=== PATIENT | male | born 1965 | race Caucasian/White ===

== ENCOUNTER 2017-09-10 19:31 | Emergency (ER) | payer OTHER ==
[~2017-09-10] VITALS: Ht 180.3 cm; Wt 102.1 kg
[2017-09-10 19:40] VITALS: BP_SYST 151
--- NOTE | 2017-09-10 20:08 | NUR ---
[facility] up. Report given to Terell ALMARAZ.
--- NOTE | 2017-09-10 20:10 | NUR ---
ER MD Paiz at bedside for medical evaluation.
[2017-09-10] MEDS ORDERED: KETOROLAC TROMETHAMINE 30 MG VIAL IVP ONE (20:15)
[2017-09-10] MEDS ORDERED: NACL 0.9% 1,000 ML IV ONE (20:15)
--- NOTE | 2017-09-10 20:15 | NUR ---
Patient AOx4, ambulatory, presents to ER with complaint of left ear pain x2 days. Patient states no other symptoms or complaints at this time.
--- NOTE | 2017-09-10 20:25 | NUR ---
# 20 gauge angiocath placed to LAC. Use of asceptic technique. Opsite placed over site. Blood return noted. Blood for lab drawn from site. Flushed with 10 cc of normal saline. No evidence of infiltration noted. Patient tolerated well.
[2017-09-10] MEDS ORDERED: DEXAMETHASONE SOD PHOSPHATE 10 MG/ML VIAL IVP ONE (20:30)
[2017-09-10 20:50] LABS: BASOPHILS % (AUTO) 0.5 % (0.0-2.0); EOSINOPHILS # (AUTO) 0.3 K/uL (0.0-0.4); HEMATOCRIT 48.3 % (36-54); HEMOGLOBIN 15.8 g/dL (14.0-18.0); LYMPHOCYTES # (AUTO) 1.1 K/uL (1.0-5.5); MEAN CORPUSCULAR HEMOGLOBIN 30 pg (27-31); MEAN CORPUSCULAR HGB CONC 33 % (32-36); MEAN CORPUSCULAR VOLUME 93 fL (79.0-98.0); MONOCYTES # (AUTO) 0.8 K/uL (0.0-1.0); MONOCYTES % (AUTO) 10.9 % (1.7-9.3); NEUTROPHILS # (AUTO) 5.3 K/uL (1.8-7.7); NEUTROPHILS % (AUTO) 70.6 % (40.0-70.0); PLATELET COUNT (AUTO) 212 K/uL (130-430); RED BLOOD CELL COUNT(AUTO) 5.21 MIL/uL (4.2-6.2); RED CELL DISTRIBUTION WIDTH 11.8 % (9.0-15.0); WHITE BLOOD COUNT (AUTO) 7.5 K/uL (4.8-10.8)
[2017-09-10 20:59] LABS: CALCIUM 9.8 mg/dL (8.4-11.0); CREATININE 0.91 mg/dL (0.55-1.30); POTASSIUM 3.5 mmol/L (3.5-5.1)
--- NOTE | 2017-09-10 21:00 | NUR ---
No adverse reactions noted after medication administration. Will continue to monitor.
[2017-09-10 21:03] LABS: ALBUMIN 4.1 g/dL (3.4-4.8); TOTAL BILIRUBIN 0.8 mg/dL (0.0-1.0)
[2017-09-10] MEDS ORDERED: AMOXICILLIN 500 MG CAPSULE PO ONE (21:15)
[2017-09-10 21:35] LABS: STREPTOCOCCUS A SCREEN (RAPID) NEGATIVE (NEGATIVE)
[2017-09-10 21:36] LABS: INFLUENZA A&B ANTIGEN SCREEN NEGATIVE FOR A & B (NEGATIVE)
[2017-09-10 22:19] VITALS: BP_SYST 142
--- NOTE | 2017-09-10 22:19 | NUR ---
Patient given written and verbal discharge instructions and verbalizes understanding. ER MD discussed with patient the results and treatment provided. Patient in stable condition. ID arm band removed. IV catheter removed intact and dressing applied, no active bleeding. Rx of Medrol Dosepak, Debrox, Amoxicillin, Motrin, and Promethazine given. Patient educated on pain management and to follow up with PMD. Pain Scale 0/10. Opportunity for questions provided and answered.
== END 2017-09-10 22:19 | disposition home or self-care (01) ==
LOC: SED 19:31
DX: H66.92 Otitis media, unspecified, left ear (principal); H61.21 Impacted cerumen, right ear; J06.9 Acute upper respiratory infection, unspecified; R03.0 Elevated blood-pressure reading, without diagnosis of hypertension; Z87.442 Personal history of urinary calculi
CPT/HCPCS: 36415; 71045; 80053; 84484; 85025; 86403; 86710; 87040; 87081; 93005; 96361; 96374; 96375; 99285; J1100; J1885; J7030

== ENCOUNTER 2020-05-02 17:42 | Emergency (ER) | payer OTHER, SELFPAY ==
[~2020-05-02] VITALS: Ht 180.3 cm; Wt 99.8 kg
[2020-05-02 17:44] VITALS: BP_SYST 149
[2020-05-02] MEDS ORDERED: FLUORESCEIN SODIUM 1 MG OPHTHALMIC STRIP OP ONE (20:30)
[2020-05-02] MEDS ORDERED: TETRACAINE HCL/PF 0.5% OPHTHALMIC DROPS 4 ML OP ONE (20:30)
[2020-05-02 23:05] VITALS: BP_SYST 147
== END 2020-05-02 23:04 | disposition short-term general hospital (02) ==
LOC: SED 17:42
DX: H33.21 Serous retinal detachment, right eye (principal)
CPT/HCPCS: 36415; 99285